=== PATIENT | female | born 1965 | race African-American/Black ===

== ENCOUNTER 2025-02-20 16:20 | Inpatient (IN) | payer BC ==
[~2025-02-20] VITALS: Ht 162.6 cm; Wt 55.6 kg
[2025-02-20] MEDS ORDERED: diphenhydrAMINE 50 MG/1 ML VIAL ONE (17:09)
[2025-02-20] MEDS ORDERED: HYDROMORPHONE 1 MG/1 ML DISP.SYRIN ONE (17:09)
[2025-02-20] MEDS: diphenhydrAMINE 50 MG/1 ML VIAL IV ONE (17:15)
[2025-02-20] MEDS ORDERED: METOCLOPRAMIDE HCL 10 MG/2 ML VIAL ONE (17:16)
[2025-02-20] MEDS: HYDROMORPHONE 1 MG/1 ML DISP.SYRIN IV ONE (17:16)
[2025-02-20] MEDS: IV NORMAL SALINE 1000 ML BAG IV ONE (17:16)
[2025-02-20 17:19] LABS: PLATELET COUNT (AUTO) 181 K/uL (179-408); RED BLOOD CELL COUNT(AUTO) 4.90 MIL/uL (3.63-4.92); RED CELL DISTRIBUTION WIDTH 14.6 % (12.3-17.7); WHITE BLOOD COUNT (AUTO) 7.4 K/uL (3.8-11.8)
[2025-02-20] MEDS: METOCLOPRAMIDE HCL 10 MG/2 ML VIAL IV ONE (17:21)
[2025-02-20 17:30] LABS: ASPARTATE AMINOTRANSFERASE 17 U/L (15-37); CREATININE 0.6 mg/dL (0.6-1.3); SODIUM SERUM 134 mmol/L (136-145); TOTAL PROTEIN, SERUM 8.4 g/dL (6.4-8.2); UREA NITROGEN, BLOOD 7 mg/dL (7-18)
[2025-02-20] MEDS ORDERED: CLONAZEPAM 1 MG TABLET ONE (17:57)
[2025-02-20] MEDS: CLONAZEPAM 0.5 MG TABLET PO ONE (18:00)
[2025-02-20] MEDS ORDERED: LEVO25TA2 PO (18:16)
[2025-02-20] MEDS ORDERED: CLON2TAB PO (18:16)
[2025-02-20] MEDS ORDERED: ZOLP12.52 PO (18:16)
[2025-02-20] MEDS ORDERED: REMEDY ESSENTIAL ZINC PASTE 113 GM TP PRN (18:30)
[2025-02-20 20:36] VITALS: BP 142/85; TEMP 98.4; O2SAT 96
[2025-02-20] MEDS: IV NS 1000 ML 1,000 ML IV PRN (20:53)
[2025-02-20] MEDS: SUCRALFATE 1 G/10 ML LIQUID UDC PO SCH (20:53)
[2025-02-20] MEDS: ONDANSETRON 4 MG/2 ML VIAL IV PRN (21:02)
[2025-02-20] MEDS ORDERED: Medication Not On Formulary EA (Zolpidem Tartrate (Ambien Cr) 12.5 MG) PO SCH (21:15)
[2025-02-20] MEDS: PANTOPRAZOLE SODIUM 40 MG VIAL IV ONE (21:45)
[2025-02-20] MEDS ORDERED: CLONAZEPAM 1 MG TABLET PO PRN (22:00)
[2025-02-20] MEDS: CLONAZEPAM 1 MG TABLET PO ONE (22:05)
[2025-02-20] MEDS: LEVOTHYROXINE SODIUM 25 MCG TABLET PO SCH (22:06)
[2025-02-20] MEDS: MORPHINE SULFATE 2 MG/1 ML DISP.SYRIN IM PRN (22:46)
[2025-02-20] MEDS: ZOLPIDEM 5 MG TABLET PO ONE (23:09)
[2025-02-21] MEDS: MORPHINE SULFATE 2 MG/1 ML DISP.SYRIN IV ONE (05:46)
[2025-02-21 06:09] VITALS: BP 136/75; TEMP 98; O2SAT 100
[2025-02-21 06:35] LABS: PLATELET COUNT (AUTO) 154 K/uL (179-408); RED BLOOD CELL COUNT(AUTO) 4.21 MIL/uL (3.63-4.92); RED CELL DISTRIBUTION WIDTH 14.9 % (12.3-17.7); WHITE BLOOD COUNT (AUTO) 5.9 K/uL (3.8-11.8)
[2025-02-21 06:49] LABS: CREATININE 0.5 mg/dL (0.6-1.3); SODIUM SERUM 140 mmol/L (136-145); UREA NITROGEN, BLOOD 6 mg/dL (7-18)
[2025-02-21] MEDS: PANTOPRAZOLE SODIUM 40 MG VIAL IV SCH (08:52)
[2025-02-21] MEDS ORDERED: LEVOTHYROXINE SODIUM 25 MCG TABLET PO SCH (09:00)
[2025-02-21] MEDS ORDERED: CLONAZEPAM 1 MG TABLET PO SCH (09:00)
[2025-02-21] MEDS: LEVOTHYROXINE SODIUM 50 MCG TABLET PO SCH (09:06)
[2025-02-21 10:52] VITALS: BP 133/79; TEMP 97.9; O2SAT 97
[2025-02-21] MEDS ORDERED: PROPOFOL 200 MG/20 ML BOTTLE ONE (12:15)
[2025-02-21] MEDS ORDERED: LIDOCAINE-MPF 2% 5 ML VIAL ONE (12:15)
[2025-02-21] MEDS: CLONAZEPAM 1 MG TABLET PO PRN (15:01)
[2025-02-21 15:56] VITALS: BP 141/79; TEMP 98.1; O2SAT 99
[2025-02-21] MEDS: SUCRALFATE 1 G TABLET PO SCH (16:56)
[2025-02-21] MEDS: ACETAMINOPHEN 325 MG TABLET PO PRN (16:56)
[2025-02-21] MEDS: HYDROMORPHONE 1 MG/1 ML DISP.SYRIN IV PRN (17:05)
[2025-02-21 19:30] VITALS: BP 147/81; TEMP 98.4; O2SAT 100
[2025-02-21] MEDS: ZOLPIDEM 5 MG TABLET PO PRN (23:13)
[2025-02-22] MEDS: PANTOPRAZOLE SODIUM 40 MG TABLET.DR PO SCH (06:50)
[2025-02-22 11:08] VITALS: BP 131/76; TEMP 97.8; O2SAT 96
[2025-02-22 15:02] VITALS: BP 130/80; TEMP 98.3; O2SAT 98
[2025-02-22] MEDS ORDERED: HYOSCYAMINE SULFATE 0.125 MG TABLET PO PRN (15:15)
[2025-02-22 19:15] VITALS: BP 124/69; TEMP 98.5; O2SAT 98
[2025-02-23 06:06] VITALS: BP 119/77; TEMP 98.1; O2SAT 98
[2025-02-23 12:00] VITALS: BP 142/89; TEMP 97.9; O2SAT 99
[2025-02-23 15:49] VITALS: BP 174/90; TEMP 98.9; O2SAT 96
[2025-02-23 16:00] VITALS: BP 154/74; O2SAT 97
[2025-02-23] MEDS ORDERED: ROPIVACAINE HCL/PF 0.5% ( 5 MG/ML ) , 20 ML VIAL ONE (16:24)
[2025-02-23] MEDS ORDERED: MIDAZOLAM HCL 2 MG/2 ML VIAL ONE (16:24)
[2025-02-23] MEDS ORDERED: FENTANYL CITRATE 100 MCG/2 ML AMPUL ONE (16:24)
[2025-02-23] MEDS ORDERED: KETAMINE HCL 500 MG/5 ML VIAL ONE (16:24)
[2025-02-23] MEDS ORDERED: FAMOTIDINE. 20 MG/2 ML VIAL IV ONE (16:25)
[2025-02-23] MEDS ORDERED: ROCURONIUM BROMIDE 50 MG/5 ML VIAL ONE (16:25)
[2025-02-23] MEDS: SCOPOLAMINE PATCH 1 MG/72 HRS PATCH TD SCH (16:30)
[2025-02-23] MEDS ORDERED: LIDOCAINE 2% (GLYDO= UROJET) 10 ML JELLY MM ONE (16:34)
[2025-02-23] MEDS ORDERED: LIDOCAINE HCL 1% 20 ML VIAL ONE (16:40)
[2025-02-23] MEDS ORDERED: BUPIVACAINE/EPI PF 0.25% 10 ML VIAL IJ ONE ×2 (16:40→16:41)
[2025-02-23] MEDS ORDERED: PETROLATUM,WHITE JELLY 28.35 GM TUBE TP PRN (16:45)
[2025-02-23] MEDS ORDERED: SUGAMMADEX SODIUM 200 MG/2 ML VIAL IV ONE (17:34)
[2025-02-23] MEDS ORDERED: FLUMAZENIL 0.5 MG/5 ML VIAL ONE (18:03)
[2025-02-23] MEDS ORDERED: HYDROMORPHONE 1 MG/1 ML DISP.SYRIN ONE (18:41)
[2025-02-23] MEDS: HYDROMORPHONE 1 MG/1 ML DISP.SYRIN IV PRN (18:46)
[2025-02-23 19:29] VITALS: BP 172/96
[2025-02-23 19:49] VITALS: BP 152/82; TEMP 98.7; O2SAT 98
[2025-02-24 06:51] VITALS: BP 119/64; TEMP 97.9; O2SAT 97
[2025-02-24 11:58] VITALS: BP 139/71; TEMP 97.6; O2SAT 98
[2025-02-24 16:07] VITALS: BP 146/79; TEMP 98.6; O2SAT 98
[2025-02-24] MEDS ORDERED: DEXAMETHASONE SOD PHOSPHATE 4 MG INJ ONE (18:04)
[2025-02-24] MEDS ORDERED: CEFAZOLIN 1 G VIAL ONE (18:04)
[2025-02-24] MEDS ORDERED: PROPOFOL 200 MG/20 ML BOTTLE ONE (18:04)
[2025-02-24] MEDS ORDERED: LIDOCAINE-MPF 2% 5 ML VIAL ONE (18:04)
[2025-02-24] MEDS ORDERED: KETOROLAC TROMETHAMINE 30 MG INJ ONE (18:04)
[2025-02-24] MEDS ORDERED: ONDANSETRON 4 MG/2 ML VIAL ONE (18:04)
[2025-02-24] MEDS: HYDROMORPHONE 1 MG/1 ML DISP.SYRIN IV ONE (18:40)
[2025-02-24] MEDS: MAGNESIUM HYDROXIDE 30 ML LIQUID UDC PO PRN (21:39)
[2025-02-25 06:50] VITALS: BP 140/76; TEMP 98.8; O2SAT 97
[2025-02-25 12:00] VITALS: BP 125/73; TEMP 98.6; O2SAT 98
[2025-02-25 16:08] VITALS: BP 140/74; TEMP 98.1; O2SAT 98
[2025-02-25 19:37] VITALS: BP 150/70; TEMP 97.8; O2SAT 93
[2025-02-26 05:50] VITALS: BP 139/65; TEMP 97.8; O2SAT 94
[2025-02-26 11:35] VITALS: BP 127/60; TEMP 98.2; O2SAT 96
[2025-02-26 15:40] VITALS: BP 137/61; TEMP 98.6; O2SAT 97
[2025-02-26 19:36] VITALS: BP 136/82; TEMP 98.3; O2SAT 97
[2025-02-27 06:04] VITALS: BP 124/77; TEMP 97.9; O2SAT 100
[2025-02-27 10:00] VITALS: BP 139/70; TEMP 97.3; O2SAT 96
[2025-02-27 11:35] VITALS: BP 135/75; TEMP 98.6; O2SAT 98
[2025-02-27] MEDS ORDERED: PANT40TA49 PO ×2 (13:12→19:58)
[2025-02-27] MEDS ORDERED: HYOS0.1273 PO ×2 (13:12→19:58)
[2025-02-27] MEDS ORDERED: IBUP-1955 PO ×2 (13:12→19:58)
[2025-02-27] MEDS ORDERED: LEVO50TA8 PO ×2 (13:12→19:58)
[2025-02-27 15:47] VITALS: BP 122/73; TEMP 97.8; O2SAT 98
[2025-02-27 19:40] VITALS: BP 144/76; TEMP 98.9; O2SAT 98
[2025-02-28 05:32] VITALS: BP 116/72; TEMP 98.1; O2SAT 96
[2025-02-28 11:30] VITALS: BP 132/99; TEMP 98.2; O2SAT 98
[2025-02-28] MEDS ORDERED: HYDR-3980 PO (12:29)
== END 2025-02-28 13:05 | disposition home or self-care (01) | DRG 418 ==
LOC: ER 16:32 → MEDSURG3 18:09
PROVIDERS: ADMIT Internal Medicine; ATTEND Internal Medicine
PROC: 0DB68ZX Excision of Stomach, Via Natural or Artificial Opening Endoscopic, Diagnostic (ICD-10-PCS; principal; 2025-02-21 12:30)
PROC: 0FT44ZZ Resection of Gallbladder, Percutaneous Endoscopic Approach (ICD-10-PCS; 2025-02-23)
PROC: 0FB04ZX Excision of Liver, Percutaneous Endoscopic Approach, Diagnostic (ICD-10-PCS; 2025-02-23)
PROC: 3E0T3BZ Introduction of Anesthetic Agent into Peripheral Nerves and Plexi, Percutaneous Approach (ICD-10-PCS; 2025-02-23)
DX: K82.8 Other specified diseases of gallbladder (principal); E87.1 Hypo-osmolality and hyponatremia; K29.70 Gastritis, unspecified, without bleeding; E89.0 Postprocedural hypothyroidism; F41.9 Anxiety disorder, unspecified; K76.9 Liver disease, unspecified; Z90.710 Acquired absence of both cervix and uterus; Z87.11 Personal history of peptic ulcer disease; Z79.890 Hormone replacement therapy
CPT/HCPCS: 36415; 71045; 83605; 83690; 83735; 84100; 84443; 84484; 85025; 85730; 88313-TC; 88342; A4606; A4663; A9537; G0378; J0690; J1100; J1171; J1200; J1308; J1885; J2250; J2270; J2405; J2470; J2765; J2795; J3010; J3490; J7040; L8699